=== PATIENT | female | born 1990 | race Caucasian/White ===

== ENCOUNTER 2016-12-21 15:40 | Inpatient (IN) | payer OTHER ==
[~2016-12-21] VITALS: Ht 162.6 cm; Wt 68.0 kg
[2016-12-21] MEDS ORDERED: D5%-LACTATED RINGERS 1,000 ML IV SCH (15:49)
[2016-12-21] MEDS ORDERED: OXYTOCIN 30U/ 0.9% NaCL 500ML 500 ML IV ONE (15:49)
[2016-12-21] MEDS ORDERED: FENTANYL PF 100 MCG/2ML ONE ×2 (15:53→16:59)
[2016-12-21] MEDS ORDERED: OXYTOCIN 30U/ 0.9% NaCL 500ML 500 ML ONE (15:53)
[2016-12-21] MEDS: LACTATED RINGERS 1,000 ML IV SCH ×2 (15:55→16:30)
[2016-12-21] MEDS: FENTANYL PF 100 MCG/2ML IVPush PRN ×2 (15:55→17:15)
[2016-12-21] MEDS: PLEASE ENTER ALLERGIES MC SCH ×2 (16:00)
[2016-12-21] MEDS ORDERED: CALCIUM CARBONATE 500 MG TAB.CHEW PO PRN ×2 (16:00→19:00)
[2016-12-21] MEDS ORDERED: TERBUTALINE 1 MG/ML, 1ML IVPush PRN (16:00)
[2016-12-21] MEDS ORDERED: ONDANSETRON 2MG/ML, 2ML IVPush PRN (16:00)
[2016-12-21 16:13] VITALS: BP 134/85
[2016-12-21 16:23] LABS: HEMATOCRIT 30.9 % (34.6-47.8); HEMOGLOBIN 9.9 g/dL (11.7-16.4); WHITE BLOOD COUNT 9.2 x10^3/uL (3.4-10)
[2016-12-21] MEDS ORDERED: PLEASE ENTER HEIGHT AND WEIGHT MC SCH (16:30)
[2016-12-21] MEDS ORDERED: LIDOCAINE 1%, 20ML ONE (16:54)
[2016-12-21] MEDS ORDERED: NEWBORN KIT ONE (16:55)
[2016-12-21] MEDS ORDERED: MISOPROSTOL 200 MCG TABLET ONE (16:55)
[2016-12-21] MEDS ORDERED: HYDROcodone/APAP 5/325 TABLET ONE (18:33)
[2016-12-21] MEDS ORDERED: IBUPROFEN 600 MG TABLET ONE (18:33)
[2016-12-21] MEDS: OXYTOCIN 30U/ 0.9% NaCL 500ML 500 ML IV SCH (18:38)
[2016-12-21] MEDS ORDERED: ONDANSETRON 2MG/ML, 2ML IV PRN (19:00)
[2016-12-21] MEDS ORDERED: DIPH,PERTUSS(ACELL),TET VAC/PF NC IM-VACC PRN (19:00)
[2016-12-21] MEDS ORDERED: DOCUSATE 100 MG CAPSULE PO PRN (19:00)
[2016-12-21] MEDS ORDERED: HYDROcodone/APAP 5/325 TABLET PO PRN ×2 (19:00)
[2016-12-21] MEDS ORDERED: IBUPROFEN 600 MG TABLET PO PRN (19:00)
[2016-12-21] MEDS ORDERED: MISOPROSTOL 200 MCG TABLET PR PRN (19:00)
[2016-12-21 20:40] VITALS: BP 125/76
[2016-12-22 00:30] VITALS: BP 119/79
[2016-12-22 01:47] LABS: HEMATOCRIT 28.3 % (34.6-47.8); HEMOGLOBIN 9.2 g/dL (11.7-16.4); WHITE BLOOD COUNT 16.1 x10^3/uL (3.4-10)
[2016-12-22 04:31] VITALS: BP 117/79
[2016-12-22] MEDS: OXYTOCIN 30U/ 0.9% NaCL 500ML 500 ML IV SCH ×2 (04:38→14:38)
[2016-12-22 07:35] VITALS: BP 123/80
[2016-12-22] MEDS: PLEASE ENTER ALLERGIES MC SCH ×4 (08:00)
[2016-12-22] MEDS ORDERED: PRENATAL VIT/IRON/FA 1 EACH TABLET PO SCH (09:00)
[2016-12-22 12:00] VITALS: BP 119/76
[2016-12-22] MEDS ORDERED: HYDR-3240 PO (13:16)
[2016-12-22] MEDS ORDERED: IBUP800T PO (13:17)
[2016-12-22] MEDS ORDERED: FERR325T5 PO (13:20)
[2016-12-22 16:20] VITALS: BP 130/83
== END 2016-12-22 18:40 | disposition home or self-care (01) | DRG 775 ==
LOC: LDIP 15:40 → 2NW 20:03
PROVIDERS: ADMIT Student in an Organized Health Care Education/Training Program; ATTEND Student in an Organized Health Care Education/Training Program
PROC: 10E0XZZ Delivery of Products of Conception, External Approach (ICD-10-PCS; principal; 2016-12-21)
PROC: 0HQ9XZZ Repair Perineum Skin, External Approach (ICD-10-PCS; 2016-12-21)
DX: O70.0 First degree perineal laceration during delivery (principal); Z37.0 Single live birth; Z79.82 Long term (current) use of aspirin; Z3A.39 39 weeks gestation of pregnancy
CPT/HCPCS: 36415; 85025; 86850; 86900; J3010; J2590; J7120

== ENCOUNTER 2017-01-06 14:16 | Emergency (ER) | payer OTHER ==
[~2017-01-06] VITALS: Ht 162.6 cm; Wt 59.1 kg
[~2017-01-06 14:16] MED LIST: FERR325T5 PO; HYDR-3240 PO; IBUP-1223 PO
[2017-01-06 14:18] VITALS: BP 109/77
== END 2017-01-06 15:21 | disposition home or self-care (01) ==
LOC: ED 15:12
DX: N61.0 Mastitis without abscess (principal)
CPT/HCPCS: 99283

== ENCOUNTER 2020-03-12 05:10 | Emergency (ER) | payer OTHER ==
[~2020-03-12] VITALS: Ht 162.6 cm; Wt 58.4 kg
--- NOTE | 2020-03-12 06:10 | NUR ---
A&o x4, answering questions appropriately. 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 A1. States sudden onset "gushing blood" approx 1 hour ago. Bleeding stopped quickly, states only small amount of spotting upon arrival to ED. Pt also c/o associated bilateral lower quadrant "pressure," tender to palpation. Provider at bedside for interview. Bed low, side rails up, call french within reach
[2020-03-12 06:22] LABS: BASOPHILS % (AUTO) 0 % (0-1); EOSINOPHILS % (AUTO) 1 % (1-7); LYMPHOCYTES % (AUTO) 15 % (22-44); MEAN CORPUSCULAR HEMOGLOBIN 28.3 pg (27.0-34.8); MEAN CORPUSCULAR HGB CONC 33.7 g/dL (32.4-35.8); MEAN PLATELET VOLUME 7.2 fL (7.4-10.4); MONOCYTES % (AUTO) 5 % (2-9); NEUTROPHILS % (AUTO) 78 % (42-75); PLATELET COUNT 337 x10^3/uL (130-400); RED BLOOD COUNT 3.95 x10^6/uL (3.82-5.3); RED CELL DISTRIBUTION WIDTH 13.6 % (9.6-15.2)
[2020-03-12 06:32] LABS: MD NO
[2020-03-12 06:50] LABS: MICROSCOPIC INDICATED
--- NOTE | 2020-03-12 07:30 | NUR ---
RECEIVED BEDSIDE REPORT AND CARE FROM ALICIA MARTINEZ AT THIS TIME. PT RESTING IN POSITION OF COMFORT. DENIES NEED TO USE RESTROOM AND ANY PAIN. VSS. REPORTS "STILL SPOTTING AND WHEN I GO TO BATHROOM AND WIPE THERE IS BLOOD, SOME MILD CRAMPING BUT NO PAIN." AWAITING US RESULTS. CALL LIGHT IN REACH. FALL PRECUATIONS IN PLACE. A&OX4. SIGNIFICANT OTHER AT BEDSIDE.
--- NOTE | 2020-03-12 08:10 | NUR ---
NICK GODINEZ AT BEDSIDE FOR PELVIC EXAM WITH THIS RN CHAPARONE. PT TOLERATED WELL, SCANT BLEEDING NOTED. DENIES PAIN AND PRESSURE, "JUST SOME MILD CRAMPING." VSS. CALL LIGHT IN REACH. FALL PRECAUTIONS IN PLACE.
[2020-03-12 09:27] VITALS: BP 118/76
== END 2020-03-12 09:30 | disposition home or self-care (01) ==
LOC: ED 07:55
DX: O20.0 Threatened abortion (principal); Z3A.17 17 weeks gestation of pregnancy
CPT/HCPCS: 36415; 76815; 81001; 85025; 86901; 99284